=== PATIENT | female | born 1990 | race African-American/Black ===

== ENCOUNTER 2016-11-25 09:44 | Emergency (ER) | payer MEDICAID ==
[~2016-11-25] VITALS: Ht 170.2 cm; Wt 72.6 kg
[2016-11-25 10:02] VITALS: BP 109/73
== END 2016-11-25 11:16 | disposition home or self-care (01) ==
LOC: ER 09:44
DX: K04.7 Periapical abscess without sinus (principal)

== ENCOUNTER 2019-02-16 12:26 | Emergency (ER) | payer MEDICAID, OTHER ==
[~2019-02-16] VITALS: Ht 170.2 cm; Wt 51.9 kg
[2019-02-16 14:34] VITALS: BP 110/70
[2019-02-16] MEDS ORDERED: KETOROLAC TROMETH 60MG/2ML VIAL IM ONE (15:00)
[2019-02-16] MEDS ORDERED: HYDROcodone-ACET 10/325MG TAB PO ONE (15:00)
== END 2019-02-16 15:37 | disposition home or self-care (01) ==
LOC: ER 12:26
DX: K04.7 Periapical abscess without sinus (principal)
CPT/HCPCS: 96372; 99283; J1885

== ENCOUNTER 2019-09-01 13:06 | Emergency (ER) | payer OTHER ==
[~2019-09-01] VITALS: Ht 170.2 cm; Wt 64.9 kg
[2019-09-01 21:44] LABS: Urine Bacteria NONE SEEN /hpf (None Seen); Urine Blood Negative /uL (Negative); Urine Mucus FEW (None Seen); Urine Specific Gravity 1.025 (1.001-1.035); Urine WBC 1 /hpf (0 - 5)
[2019-09-01 22:46] VITALS: BP 100/70
== END 2019-09-01 23:42 | disposition home or self-care (01) ==
LOC: ER 13:15
DX: O26.891 Other specified pregnancy related conditions, first trimester (principal); R39.14 Feeling of incomplete bladder emptying; Z3A.11 11 weeks gestation of pregnancy
CPT/HCPCS: 76830; 81001

== ENCOUNTER 2020-05-01 14:39 | Emergency (ER) | payer OTHER ==
[~2020-05-01] VITALS: Ht 170.2 cm; Wt 68.0 kg
[2020-05-01 14:48] VITALS: BP 103/77
== END 2020-05-01 16:22 | disposition home or self-care (01) ==
LOC: ER 14:39
DX: K04.7 Periapical abscess without sinus (principal)

== ENCOUNTER 2021-06-05 18:30 | Inpatient (IN) | payer OTHER ==
[~2021-06-05] VITALS: Ht 170.2 cm; Wt 77.1 kg
[2021-06-05] MEDS ORDERED: PENICILLIN G POT 5MIL/D5 50ML 50 ML IV ONE (19:00)
[2021-06-05] MEDS ORDERED: DERMOPLAST 60ML BOTTLE TOP PRN (19:00)
[2021-06-05] MEDS ORDERED: LACTATED RINGER'S 1,000 ML IV SCH (19:00)
[2021-06-05] MEDS ORDERED: LIDOCAINE 2%HCL (LOCAL ANESTH.) INJ 20ML MDV IJ PRN (19:00)
[2021-06-05] MEDS ORDERED: PROMETHAZINE HCL 25 MG/ML 1ML IV PRN (19:00)
[2021-06-05] MEDS ORDERED: WITCH HAZEL-GLYCERIN PAD TOP PRN (19:00)
[2021-06-05] MEDS ORDERED: BUTORPHANOL TARTRATE 2 MG/1 ML VIAL IV PRN ×2 (19:00)
[2021-06-05] MEDS ORDERED: PHISODERM TOP SOLN 240ML BTL TOP PRN (19:00)
[2021-06-05] MEDS ORDERED: LACT. RINGERS/OXYTOCIN 20UNITS 1,000 ML IV SCH (19:15)
[2021-06-05] MEDS ORDERED: METHYLERGONOVINE MALEATE 0.2 MG/ML AMP IM PRN (19:15)
[2021-06-05] MEDS ORDERED: ONDANSETRON HCL 4 MG/2 ML VIAL IV PRN (19:15)
[2021-06-05] MEDS ORDERED: CARBOPROST TROMETHAMINE 250 MCG/1ML VIAL IM PRN (19:15)
[2021-06-05] MEDS ORDERED: TERBUTALINE SULFATE 1 MG/ML 1ML VIAL SC PRN (19:15)
[2021-06-05] MEDS ORDERED: miSOPROStol 100 mcg TAB PR PRN (19:15)
[2021-06-05] MEDS ORDERED: miSOPROStol 100 mcg TAB SL PRN (19:15)
[2021-06-05] MEDS ORDERED: OXYTOCIN 10UNIT/ML 1ML VIAL IM ONE (19:15)
[2021-06-05] MEDS ORDERED: LACT. RINGERS/OXYTOCIN 20UNITS 500 ML IV ONE (19:15)
[2021-06-05] MEDS ORDERED: PREN-129 OR (19:42)
[2021-06-05 20:04] LABS: Mean Corpuscular Hemoglobin 19.9 pg (28.0-32.0); Mean Corpuscular Hgb Conc. 29.6 g/dL (32.0-36.0)
[2021-06-05 20:07] LABS: Basophils # (auto) 0 10 ^3/uL (0-0.2); Basophils % (auto) 0.2 % (0.0-2.0); Eosinophils # (auto) 0.1 10 ^3/uL (0-0.8); Eosinophils % (auto) 1.4 % (0.0-7.0); Hematocrit 32.6 % (36.0-46.0); Hemoglobin 9.6 g/dL (12.2-16.2); Lymphocytes # (auto) 1.4 10 ^3/uL (0.4-5.4); Lymphocytes % (auto) 18.5 % (10.0-50.0); Mean Corpuscular Volume 67.3 fL (80.0-100.0); Monocytes # (auto) 1.2 10 ^3/uL (0-1.3); Neutrophils # (auto) 4.8 10 ^3/uL (1.6-8.6); Neutrophils % (auto) 63.9 % (37.0-80.0); Nucleated Red Blood Cells % 0.7 %; Red Blood Cells 4.84 10^6/uL (4.0-5.20); Red Cell Distribution Width 19.9 % (11.8-14.3); White Blood Cell 7.5 10^3/uL (4.4-10.8)
[2021-06-05 20:14] LABS: Urine Bacteria FEW /hpf (None Seen); Urine Blood Negative /uL (Negative); Urine Specific Gravity 1.012 (1.001-1.035); Urine WBC 6 /hpf (0 - 5)
[2021-06-05 20:18] LABS: INR 0.95 (0.9-1.15); Partial Thromboplastin Time 24.8 sec (23.6-33.0)
[2021-06-05 20:30] LABS: Albumin 2.3 g/dL (3.4-5.0); BUN/Creatinine Ratio 6.5; Calcium 8.5 mg/dL (8.5-10.1); Potassium 3.7 mmol/L (3.5-5.1)
[2021-06-05 20:33] LABS: Bilirubin, Total 0.3 mg/dL (0.2-1.0); Total Protein 6.5 g/dL (6.4-8.2)
[2021-06-05 20:34] LABS: Amphetamine Screen, Urine NEGATIVE (NEGATIVE); Barbiturate Scree,Urine NEGATIVE (NEGATIVE); Benzodiazephine Screen, Urine NEGATIVE (NEGATIVE); Cannabinoid Screen, Urine NEGATIVE (NEGATIVE); Cocaine Screen, Urine NEGATIVE (NEGATIVE); Opiate Scree,Urine NEGATIVE (NEGATIVE); Phencyclidine Screen, Urine NEGATIVE (NEGATIVE)
[2021-06-05] MEDS ORDERED: ROPIVACAINE HCL 200 ML EPI SCH (21:30)
[2021-06-05] MEDS ORDERED: NALOXONE HCL 0.4 MG/ML VIAL IV ONE (21:30)
[2021-06-05] MEDS ORDERED: ePHEDrine SULFATE 50 MG/ML AMP IV ONE (21:30)
[2021-06-05] MEDS ORDERED: LIDOCAINE HCL 2 %PF INJ 10ML AMP IJ ONE (21:30)
[2021-06-05] MEDS ORDERED: DIPHENOXYLATE W/ATROPINE 2.5 MG TAB PO SCH (22:00)
[2021-06-05] MEDS ORDERED: PENICILLIN G POTASSIUM 2,500,000 UNITS in D5W 5% 50 ML IV SCH (23:00)
[2021-06-06] MEDS ORDERED: ACETAMINOPHEN 325 MG TAB PO PRN (03:30)
[2021-06-06] MEDS: IBUPROFEN 600 MG TAB PO PRN ×2 (04:19→08:07)
[2021-06-06 11:12] VITALS: BP 110/61
[2021-06-06] MEDS ORDERED: TETANUS-DIPTH-ACEL PERTUSSIS 0.5ML SYR Tdap IM ONE (13:45)
[2021-06-06] MEDS: ACETAMINOPHEN/CODEINE#3 (300/30mg) TAB PO PRN ×2 (14:38→20:26)
[2021-06-06 19:00] VITALS: BP 106/62
[2021-06-06 23:00] VITALS: BP 109/67
[2021-06-07] MEDS: ACETAMINOPHEN/CODEINE#3 (300/30mg) TAB PO PRN ×2 (01:03→05:48)
[2021-06-07] MEDS: IBUPROFEN 600 MG TAB PO PRN ×2 (03:11→07:29)
[2021-06-07 03:30] VITALS: BP 117/76
[2021-06-07 06:06] LABS: RPR Non Reactive (Non Reactive); Rubella Antibodies, IgG 1.43 index (Immune >0.99)
[2021-06-07 07:10] VITALS: BP 103/68
[2021-06-07 11:30] VITALS: BP 100/58
== END 2021-06-07 13:42 | disposition home or self-care (01) | DRG 560 ==
LOC: OBSVTOIN 18:30 → LDRP 18:30
PROVIDERS: ADMIT Obstetrics & Gynecology; ATTEND Obstetrics & Gynecology
PROC: 10E0XZZ Delivery of Products of Conception, External Approach (ICD-10-PCS; principal; 2021-06-05)
PROC: 3E0DXGC Introduction of Other Therapeutic Substance into Mouth and Pharynx, External Approach (ICD-10-PCS; 2021-06-05)
PROC: 3E0R3BZ Introduction of Anesthetic Agent into Spinal Canal, Percutaneous Approach (ICD-10-PCS; 2021-06-05)
PROC: 00HU33Z Insertion of Infusion Device into Spinal Canal, Percutaneous Approach (ICD-10-PCS; 2021-06-05)
DX: O80 Encounter for full-term uncomplicated delivery (principal); Z37.0 Single live birth; Z20.822 Contact with and (suspected) exposure to COVID-19; Z3A.38 38 weeks gestation of pregnancy; Z82.49 Family history of ischemic heart disease and other diseases of the circulatory system; Z83.3 Family history of diabetes mellitus
CPT/HCPCS: 36415; 59025; 59409; 62282; 71045; 76805; 80053; 80307; 81001; 81002; 85025; 85610; 85730; 86592; 86703; 86762; 86850; 86900; 86901; 87340; 87426; 90715; 94760; 96360; 96361; 96372; 96374; 96375; G0378; J2405; J2540; J2590; J7060

== ENCOUNTER 2021-07-31 11:02 | Emergency (ER) | payer OTHER ==
[~2021-07-31] VITALS: Ht 170.2 cm; Wt 77.1 kg
[~2021-07-31 11:02] MED LIST: PREN-129 OR
[2021-07-31] MEDS ORDERED: BENZOCAINE (DENTAL) 20 % SPRAY 60ML MT ONE (14:45)
[2021-07-31 14:48] VITALS: BP 133/78
== END 2021-07-31 15:01 | disposition home or self-care (01) ==
LOC: ER 11:02
DX: S02.5XXA Fracture of tooth (traumatic), initial encounter for closed fracture (principal); K04.7 Periapical abscess without sinus; X58.XXXA Exposure to other specified factors, initial encounter; Y93.89 Activity, other specified; Y92.89 Other specified places as the place of occurrence of the external cause; Y99.8 Other external cause status